=== PATIENT | female | born 1940 | race Caucasian/White ===

== ENCOUNTER 2021-02-13 07:38 | Outpatient (CLI) | payer MEDICARE, BC, SELFPAY ==
--- NOTE | ~2021-02-13 | DEXA_ITS ---
Bone Density Report Name: April Hunter Age: 81 Sex: Female Ethnicity: White Date of : 1940 Indication: osteopenia; hysterectomy; Referring Provider: Shelly Lock Study: Bone densitometry was performed. Exam Date: February 13, 2021 Accession number: [id number] Bone Density: Region BMD T-score Z-score Classification AP Spine (L1-L4) 0.744 -2.8 0.0 Osteoporosis Femoral Neck (Left) 0.580 -2.4 0.0 Osteopenia Total Hip (Left) 0.599 -2.8 -0.6 Osteoporosis Total Hip Bilateral Avg 0.577 -3.0 -0.8 Osteoporosis Femoral Neck (Right) 0.525 -2.9 -0.5 Osteoporosis Total Hip (Right) 0.554 -3.2 -1.0 Osteoporosis World Health Organization criteria for BMD impression classify patients as: Normal (T-score at or above -1.0), Osteopenia (T-score between -1.0 and -2.5), or Osteoporosis (T-score at or below -2.5). 10-year Fracture Risk: FRAX not reported because: Some T-score for Spine Total or Hip Total or Femoral Neck at or below -2.5 Previous Exams: Region Exam Age BMD T-score BMD Change BMD Change Date g/cm2 vs Baseline vs Previous AP Spine(L1-L4) 02/13/2021 81 0.744 -2.8 -0.100(-11.8%) -0.100(-11.8%) 08/15/2005 65 0.844 -1.8 Total Hip(Left) 02/13/2021 81 0.599 -2.8 -0.105(-14.9%) -0.105(-14.9%) 08/15/2005 65 0.704 -1.9 Total Hip(Right) 02/13/2021 81 0.554 -3.2 -0.160(-22.4%) -0.160(-22.4%) 08/15/2005 65 0.714 -1.9 *Denotes significance at 95% confidence level, LSC for AP Spine = 0.022 g/cm2, LSC for Total Hip = 0.027 g/cm2 Clinical Information Provided by Patient: Has used the following medications: Vitamin D, Calcium Has the following medical conditions: Hysterectomy Patient maximum height was 63 Menopause Age: 49 Drinks caffeinated beverages Onset of menses at age 14 Number of children 6 Impression: The patient has osteoporosis, based on the Right Total Hip T-score. No significant bone loss was observed. Discussion: INCREASED RISK OF FRACTURE. BONE DENSITY IS UNDESIRABLY LOW AT ONE OR MORE SKELETAL SITES, CONSISTENT WITH POSTMENOPAUSAL OSTEOPOROSIS. This patient's lowest T-score meets the World Health Organization's (WHO) criteria for osteoporosis at one or more sites (T-score -2.5 or below). In untreated patients, the risk of osteoporotic fracture increases approximately two-fold for each 1.0 SD decrease in T-score. Low bone density is not the only risk factor for fracture; also consider factors such as patient's age, frailty or po
--- NOTE | ~2021-02-13 | MM_ITS ---
EXAMINATION: MM screening vipul BI w angie HISTORY: Screening TECHNIQUE: Craniocaudal and mediolateral oblique 3-D tomosynthesis images were obtained and synthetic 2-D images were generated. CAD analysis was submitted and interpreted. COMPARISON: No prior mammogram is available for comparison at this institution. BREAST PARENCHYMAL COMPOSITION: There are scattered areas of fibroglandular density. FINDINGS: There is no evidence of suspicious mass, calcification, or architectural distortion to sugg est malignancy in either breast. There has been no suspicious interval change. IMPRESSION: 1. No mammographic evidence of malignancy. 2. Recommend routine screening mammography in one year. BI-RADS Category 1: Negative Reviewed, dictated and finalized at location A.
== END 2021-02-13 07:39 | disposition home or self-care (01) ==
DX: M81.0 Age-related osteoporosis without current pathological fracture (principal); Z12.31 Encounter for screening mammogram for malignant neoplasm of breast; M85.852 Other specified disorders of bone density and structure, left thigh; M85.851 Other specified disorders of bone density and structure, right thigh
CPT/HCPCS: 77063; 77067; 77080

== ENCOUNTER 2021-08-13 09:57 | Emergency (ER) | payer MEDICARE, BC, SELFPAY ==
--- NOTE | 2021-08-13 10:17 | ED.WOUNDLAC ---
HPI - Wound/Laceration General Chief Complaint: Wound/Laceration Stated Complaint: Laceration on left Leg Time Seen by Provider: 08/13/21 10:17 Source: patient and RN notes reviewed Mode of arrival: ambulatory Limitations: no limitations History of Present Illness HPI narrative: 81-year-old female presents to the [facility] with a skin tear to the left anterior contreras. States it occurred yesterday. Patient states that she was stepping out of her brothers dump truck when she slipped and scraped her contreras. States she comes here because bleeding was not completely controlled. Denies being on blood thinners. Had full range of motion. No trauma. Patient reports last Tdap was a year to a year and a half ago Related Data Allergies Allergy/AdvReac Type Severity Reaction Status Date / Time ciprofloxacin Allergy Unknown Rash Verified 08/13/21 10:16 Penicillins Allergy Unknown Rash Verified 08/13/21 10:16 Review of Systems Constitutional: Constitutional: Reports no additional constitutional complaints Eyes: Eyes: Reports no additional eye complaints ENT: Reports system reviewed and no additional complaints, except as documented Respiratory: Respiratory: Reports no additional respiratory complaints Gastrointestinal: Gastrointestinal: Reports no additional gastrointestinal complaints Musculoskeletal: Musculoskeletal: Reports no additional musculoskeletal complaints Integumentary/Breasts: Skin/Breast: Reports as per HPI Comments: Skin tear Neurologic: Reports system reviewed and no additional complaints, except as documented Psychiatric: Psychiatric: Reports no additional psychiatric complaints Allergic/Immunologic: Allergic/Immunologic: Reports no additional allergic/immunologic complaints PMFSH Surgical History Surgical History (Updated 08/13/21 @ 19:46 by Monse Santillan) No significant past surgical history Family History Family History Mother Family history of heart disease in male family member before age 55 Sibling Family history of heart disease in male family member before age 55 Father Patient's father is in good health Social History Social History Alcohol intake: never Comments At the time of my signature, I reviewed and agree with the nursing past medical, surgical, social, and family history. There is no relevant family history pertinent to the patient complaint. Exam Const: General: healthy appearing, no acute distress and alert Nutritional Appearance: well nourished Orientation/consciousness: patient oriented x3 Limitations: no limitations HENMT: Head: normal to inspection Eyes: Pupils: Equal, round and reactive pupils present Neck: Neck: normal visual inspection Chest: Chest palpation & inspection: normal inspection of the chest Resp: Effort & Inspection: normal respiratory effort Auscultation: clear to auscultation bilaterally Cardio: Rate: regular rate Rhythm: regular rhythm Skin: Wounds: wounds noted Other: L-shaped measuring 4 cm x 7 cm skin tear. Left mid anterior contreras Neuro: General: patient oriented x3, moves all extremities, no meningeal signs and no focal motor deficits Speech: normal speech Gait exam (Neuro): Normal gait present Extrem: General: normal to inspection and no pedal edema Psych: Appearance: grossly normal and well kempt Mental Status: mental status grossly normal Affect: normal affect Attitude: cooperative Thought content: Yes Normal thought content present Course Course Emergency Course: Discharge instructions reviewed with patient, as well as provided in writing per nursing staff. The instructions also include specific and strict return/GO TO THE ER as well as f/u information. All questions have been answered, and the patient deny any further questions with discharge and discharge plan. Procedures Laceration Laceration 1: Date: 08/13/21
== END 2021-08-13 11:05 | disposition home or self-care (01) ==
PROVIDERS: Emergency Provider Nurse Practitioner
DX: S81.812A Laceration without foreign body, left lower leg, initial encounter (principal); W45.8XXA Other foreign body or object entering through skin, initial encounter
CPT/HCPCS: 99212; G0463

== ENCOUNTER 2021-10-31 08:36 | Emergency (ER) | payer MEDICARE, BC, SELFPAY ==
--- NOTE | 2021-10-31 08:41 | ED.SKABFB ---
HPI - Skin/Abscess/Foreign Bdy General Chief complaint: Skin/Abscess/Foreign Body Stated complaint: Rash on Chest Time Seen by Provider: 10/31/21 08:55 Source: patient and RN notes reviewed Mode of arrival: ambulatory Limitations: no limitations History of Present Illness HPI narrative: 81-year-old female presents concern for rash on her chest. Reports the rash started on the right anterior chest shoulder area 4 days ago. Reports it has spread to the left anterior chest shoulder area and is spreading towards her back. Reports it is itchy, not painful. Reports she has been using hydrocortisone cream with minimal itch relief. She denies any history of skin allergies but reports sensitive skin for which she uses hypoallergenic home care and self care products. She reports she itches when she uses aluminum deodorant and she noticed the hydrocortisone has aluminum in it. She denies swollen lips, tongue, trouble breathing, fever, vomiting, diarrhea MD complaint: rash Related Data Home Medications Medication Instructions Recorded Confirmed levothyroxine [Synthroid] 150 mcg PO DAILY 10/31/21 10/31/21 memantine 28 mg PO DAILY 10/31/21 10/31/21 omeprazole 40 mg PO DAILY 10/31/21 10/31/21 propafenone 325 mg PO DAILY 10/31/21 10/31/21 raloxifene 60 mg PO DAILY 10/31/21 10/31/21 Allergies Allergy/AdvReac Type Severity Reaction Status Date / Time ciprofloxacin Allergy Unknown Rash Verified 10/31/21 08:43 Penicillins Allergy Unknown Rash Verified 10/31/21 08:43 Review of Systems Review of Systems: CONSTITUTIONAL: Denies malaise, chills, sweats, or fever. ENT: Denies swollen lips, swollen tongue CARDIOVASCULAR: Denies chest pain, palpitations, or edema. RESPIRATORY: Denies cough or dyspnea. GASTROINTESTINAL: Denies nausea, vomiting, diarrhea SKIN: Reports itchy rash to the anterior chest MUSCULOSKELETAL: Denies myalgia. All systems reviewed & are unremarkable except as noted in HPI and below PMFSH Surgical History Surgical History (Updated 08/13/21 @ 19:46 by Monse Santillan) No significant past surgical history Family History Family History Mother Family history of heart disease in male family member before age 55 Sibling Family history of heart disease in male family member before age 55 Father Patient's father is in good health Social History Social History Alcohol intake: never Comments At time of signature, agree with nursing past medical, surgical, social and family history. There is no relevant family history pertinent to the presenting complaint Exam Narrative: GENERAL: Well-appearing, well-nourished, and in no acute distress. HEAD: Normocephalic, atraumatic. EYES: PERRLA, conjunctivae clear ENT: Mucous membranes moist. Oropharynx without edema, erythema or lesions. NECK: Supple. No lymphadenopathy CHEST: Clear to auscultation. No respiratory distress. HEART: Regular rate and rhythm. SKIN: Warm, dry. Patches of erythematous plaque noted to the anterior bilateral chest NEURO: Alert and oriented x3. PSYCH: Normal mood and affect Course Course Emergency Course: Patient is aware of diagnosis, understands and agrees to treatment plan. Anticipatory guidance given. Patient agrees to follow-up as directed and is aware of reasons to seek care at the emergency department. Portions of this record may have been created with voice recognition software Vital Signs Vital signs: Reviewed. MDM - Skin/Abscess/Foreign Bdy MDM Narrative Medical decision making narrative: Does not appear at this time to be erythema multiforme, bullous, SJS, TEN; no evidence at this time to suggest RMSF, endocarditis or Lyme disease; patient looks well, nontoxic and is tolerating oral intake; no neurologic signs or symptoms; no headache, photophobia or neck pain; afebrile; appropriate for initial outpatient treatment; discussed the importance of
[2021-10-31 08:46] VITALS: BP 116/69; PULSE 70; RESP 16; TEMP 36.7; O2SAT 98
[2021-10-31 08:53] VITALS: BP 116/69; PULSE 70; RESP 16; TEMP 36.7; O2SAT 98
== END 2021-10-31 09:15 | disposition home or self-care (01) ==
PROVIDERS: Emergency Provider Nurse Practitioner
DX: L25.9 Unspecified contact dermatitis, unspecified cause (principal); I25.2 Old myocardial infarction; M19.90 Unspecified osteoarthritis, unspecified site; E03.9 Hypothyroidism, unspecified; D64.9 Anemia, unspecified
CPT/HCPCS: 99213; G0463

== ENCOUNTER 2022-07-01 11:55 | Outpatient (CLI) | payer MEDICARE, BC, SELFPAY ==
--- NOTE | ~2022-07-01 | XR_ITS ---
XR chest 2V DATE: 07/01/2022 12:22 INDICATION: Cough TECHNIQUE: 2 views COMPARISON: 05/17/2012 PA and lateral chest FINDINGS: The pubic sutures are again noted in the upper mid abdomen. Normal heart size. Mild aortic unfolding. No hilar or mediastinal enlargement. No pulmonary infiltrate or consolidation, pleural effusion or pulmonary vascular congestion or pneumo thorax is detected. Osteopenia. IMPRESSION: No active cardiac pulmonary disease Osteopenia Postoperative change of the abdomen Reviewed, dictated and finalized at location B.
== END 2022-07-01 11:56 | disposition home or self-care (01) ==
DX: R05.9 Cough, unspecified (principal); M85.88 Other specified disorders of bone density and structure, other site
CPT/HCPCS: 71046

== ENCOUNTER 2022-08-02 04:18 | Emergency (ER) | payer MEDICARE, BC, SELFPAY ==
--- NOTE | ~2022-08-02 | CT_ITS ---
EXAMINATION: CT soft tissue neck w con DATE: 08/02/2022 06:45 INDICATION: Dysphagia. TECHNIQUE: Computed tomography (CT) of the neck was performed with 75 mL Omnipaque-350 intravenous co ntrast. Automated exposure control and iterative reconstruction technique were employed. The dose-nicky gth product was 393.44 mGy-cm. COMPARISON: None FINDINGS: There is mild scarring at right lung apex. There are likely changes of ocular lens replacem ent surgeries. There is a 4 mm nodule in the thyroid, likely not clinically significant. There are no pathologically enlarged lymph nodes. The pharynx and larynx are normal. There is mucosal thickening in the paranasal sinuses. The mastoid air cells are normal. There is severe cervical spondylosis. IMPRESSION: 1. No etiology for the patient's symptoms. Reviewed, dictated and finalized at location A.
[2022-08-02 04:38] VITALS: BP 140/76; PULSE 67; RESP 20; O2SAT 100
--- NOTE | 2022-08-02 05:28 | ED.GENADULT ---
HPI - General Adult General Chief complaint: Neck Pain/Injury <Collin Faye MD - Last Filed: 08/02/22 07:04> Stated complaint: Neck pain, swallowing difficulty <Collin Faye MD - Last Filed: 08/02/22 07:04> Time Seen by Provider: 08/02/22 04:52 <Collin Faye MD - Last Filed: 08/02/22 07:04> History of Present Illness HPI narrative: Patient is an 82-year-old female who presents ER with neck pain. 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 Reports she does not see pain therapy nor does she see a spine doctor. She typically takes Tylenol for pain. She reports the pain is increased over the last 3 days. Its located on both sides of the neck. Worse with range of motion. Today became worse with swallowing. No sore throat. No cough. No dyspnea. No upper extremity numbness or tingling. No lower extremity weakness. <Collin Faye MD - Last Filed: 08/02/22 07:04> Related Data Home medications: Home Medications Medication Instructions Recorded Confirmed levothyroxine 150 mcg tablet 150 mcg PO DAILY 10/31/21 10/31/21 (Synthroid) memantine 28 mg capsule 28 mg PO DAILY 10/31/21 10/31/21 sprinkle,extended release 24hr omeprazole 40 mg capsule,delayed 40 mg PO DAILY 10/31/21 10/31/21 release propafenone 325 mg 325 mg PO DAILY 10/31/21 10/31/21 capsule,extended release 12 hr raloxifene 60 mg tablet 60 mg PO DAILY 10/31/21 10/31/21 <Collin Faye MD - Last Filed: 08/02/22 07:04> Allergies/adverse reactions: Allergies Allergy/AdvReac Type Severity Reaction Status Date / Time ciprofloxacin Allergy Unknown Rash Verified 08/02/22 04:20 Penicillins Allergy Unknown Rash Verified 08/02/22 04:20 <Collin Faye MD - Last Filed: 08/02/22 07:04> Review of Systems Review of Systems: All systems reviewed & are unremarkable except as noted in HPI and below <Collin Faye MD - Last Filed: 08/02/22 07:04> Constitutional: Constitutional: Denies chills, Denies fatigue and Denies fever(s) <Collin Faye MD - Last Filed: 08/02/22 07:04> ENT: Reports dysphagia, Denies nasal congestion and Denies sore throat <Collin Faye MD - Last Filed: 08/02/22 07:04> Cardiovascular: Cardiovascular: Denies chest pain, Denies rapid heart rate and Denies radiating jaw, neck or arm pain <Collin Faye MD - Last Filed: 08/02/22 07:04> Respiratory: Respiratory: Denies cough and Denies dyspnea <Collin Faye MD - Last Filed: 08/02/22 07:04> Gastrointestinal: Gastrointestinal: Denies abdominal pain, Denies nausea and Denies vomiting <Collin Faye MD - Last Filed: 08/02/22 07:04> Musculoskeletal: Musculoskeletal: Denies arthralgias and Denies joint swelling <Collin Faye MD - Last Filed: 08/02/22 07:04> Comments: Neck pain <Collin Faye MD - Last Filed: 08/02/22 07:04> PMFSH Past Medical History Medical History: Medical History (Updated 08/02/22 @ 09:17 by Jeremy Gutierrez MD) Depression Hypothyroidism Myocardial infarction Neck arthritis <Collin Faye MD - Last Filed: 08/02/22 07:04> Surgical History Surgical History: Surgical History (Updated 08/02/22 @ 05:37 by Collin Faye MD) History of cholecystectomy History of hysterectomy <Collin Faye MD - Last Filed: 08/02/22 07:04> Family History Family History: Family History Mother Family history of heart disease in male family member before age 55 Sibling Family history of heart disease in male family member before age 55 Father Patient's father is in good health <Collin Faye MD - Last Filed: 08/02/22 07:04> Social History Social History: Social History Alcohol intake: never <Collin Faye MD - Last Filed: 08/02/22 07:04>
[2022-08-02] MEDS: KETOROLAC 30 MG/ML VIAL (*BKC) IV PUSH (05:44)
[2022-08-02] MEDS: diazePAM INJ (*CRX) 10 MG/2 ML SYRINGE 2 MG IV PUSH (05:45)
[2022-08-02 06:00] LABS: Basophils Absolute Auto 0.1 K/mm3 (0.0-0.1); Basophils Percent Auto 0.8 % (0.2-1.2); Eosinophils Absolute Auto 1.3 K/mm3 (0-0.3); Eosinophils Percent Auto 16.9 % (0-4.4); Hematocrit 40.7 % (37.0-47.0); Hemoglobin 13.2 g/dL (12.0-15.0); Immature Granulocyte Absolute 0.02 K/mm3 (0.00-0.031); Immature Granulocyte Percent A 0.3 % (0-0.5); Lymphocytes Absolute Auto 1.81 K/mm3 (0.9-3.2); Mean Corpuscular HGB Conc 32.4 g/dl (32-36); Mean Corpuscular Hemoglobin 33.2 pg (26-34); Mean Corpuscular Volume 102.3 fl (80-100); Mean Platelet Volume 9.6 fl (7.4-10.4); Monocytes Absolute Auto 0.7 K/mm3 (0.1-0.6); Monocytes Percent Auto 8.5 % (2.6-8.5); Neutrophils Percent Auto 50.5 % (45.5-73.1); Platelet Count Result 258 k/mm3 (150-375); Red Blood Count 3.98 M/mm3 (4.2-5.4); Red Cell Distribution Width 12.9 % (11.5-14.5); White Blood Count 7.9 K/mm3 (4.5-10.0)
[2022-08-02 06:13] LABS: Anion Gap 10 mmol/L (8-16); Blood Urea Nitrogen 18 mg/dL (7-17); Calcium 8.9 mg/dL (8.4-10.2); Carbon Dioxide 27 mmol/L (22-30); Chloride 103 mmol/L (98-107); Estimated CRCL calculation 27 ml/min; Estimated Glomerular Filt Rate 47; Glucose 101 mg/dL (65-110); Potassium 4.6 mmol/L (3.4-5.0); Sodium 140 mmol/L (137-145)
[2022-08-02 09:38] VITALS: BP 135/61; PULSE 70; RESP 18; O2SAT 98
== END 2022-08-02 09:42 | disposition home or self-care (01) ==
PROVIDERS: Emergency Medicine; Emergency Provider Emergency Medicine
DX: M54.2 Cervicalgia (principal); G89.21 Chronic pain due to trauma; E03.9 Hypothyroidism, unspecified; I25.2 Old myocardial infarction; Z90.710 Acquired absence of both cervix and uterus
CPT/HCPCS: 36415; 70491; 80048; 85025; 96374; 96375; 99284; J1885; J3360; Q9967

== ENCOUNTER 2023-02-17 09:16 | Outpatient (CLI) | payer MEDICARE, BC, SELFPAY ==
--- NOTE | 2023-02-17 11:00 | NEURO_ITS ---
Impression: # Complains of numbness of right hand. # Right ulnar neuropathy across the elbow. # Normal needle/EMG exam. Nerve Conduction Studies Anti Sensory Summary Table Stim Site NR Peak (ms) P-T Amp (?V) Site1 Site2 Delta-P (ms) Dist (cm) Michael (m/s) Right Median Anti Sensory (2-3nd Digit) Wrist 3.2 17.4 Wrist 2-3nd Digit 3.2 14.0 44 Wrist 3.3 24.2 Wrist 2-3nd Digit 3.2 14.0 44 Right Radial Anti Sensory (Base 1st Digit) Wrist 2.8 34.5 Wrist Base 1st Digit 2.8 0.0 Right Ulnar Anti Sensory (5th Digit) Wrist 2.3 41.8 Wrist 5th Digit 2.3 14.0 61 Motor Summary Table Stim Site NR Onset (ms) O-P Amp (mV) Site1 Site2 Delta-0 (ms) Dist (cm) Michael (m/s) Right Median Motor (Abd Poll Brev) Wrist 3.1 1.8 Elbow Wrist 4.6 26.0 57 Elbow 7.7 1.6 Right Ulnar Motor (Abd Dig Minimi) Wrist 2.0 8.0 A Elbow Wrist 5.3 27.0 51 A Elbow 7.3 7.3 B Elbow Wrist 4.2 20.0 48 B Elbow 6.2 7.4 F Wave Studies NR F-Lat (ms) L-R F-Lat (ms) Right Median (Mrkrs) (Abd Poll Brev) 28.13 Right Ulnar (Mrkrs) (Abd Dig Min) 28.13 EMG Side Muscle Nerve Root Ins Act Fibs Amp Dur Recrt Comment Right 1stDorInt Ulnar C8-T1 Nml Nml Nml Nml Nml Right Ext Indicis Radial (Post Int) C7-8 Nml Nml Nml Nml Nml Right Ext Digitorum Radial (Post Int) C7-8 Nml Nml Nml Nml Nml Right BrachioRad Radial C5-6 Nml Nml Nml Nml Nml Right PronatorTeres Median C6-7 Nml Nml Nml Nml Nml Right Abd Poll Brev Median C8-T1 Nml Nml Nml Nml Nml Right ABD Dig Min Ulnar C8-T1 Nml Nml Nml Nml Nml MTDD
== END 2023-02-17 09:17 | disposition home or self-care (01) ==
PROVIDERS: Visit Provider Orthopaedic Surgery
DX: G56.01 Carpal tunnel syndrome, right upper limb (principal); G56.21 Lesion of ulnar nerve, right upper limb
CPT/HCPCS: 95886; 95909

== ENCOUNTER 2024-02-13 08:37 | Emergency (ER) | payer MEDICARE, BC, SELFPAY ==
--- NOTE | 2024-02-13 08:47 | ED.URI ---
HPI - URI/Sore Throat General Chief Complaint: Upper Respiratory Infection Stated Complaint: Cough Source: patient, RN notes reviewed and old records reviewed Mode of arrival: ambulatory Limitations: no limitations History of Present Illness HPI Narrative: Pleasant 84 year old female who presents to [facility] care with complaints of persistent cough for the past 1 month duration. Patient reports that she had the flu about a month also and has had this cough since. Patient reports no shortness of breath, no tachypnea noted or any retractions. Patient reports that she has no fevers, no sore throat, does have some nasal congestion and drainage. She states that she has been taking Robitussin for her cough. Patient reports that she has coughed so much that she is hoarse. MD elicited complaint: cough, rhinorrhea and nasal congestion Pertinent past history: seasonal allergies Onset (ago): month(s) (1) Severity: moderate Description of mucous: clear Able to tolerate fluids by mouth: Yes Treatments prior to arrival: other (Robitussin) Related Data Home Medications Medication Instructions Recorded Confirmed levothyroxine 150 mcg tablet 150 mcg PO DAILY 10/31/21 02/13/24 (Synthroid) memantine 28 mg capsule 28 mg PO DAILY 10/31/21 02/13/24 sprinkle,extended release 24hr omeprazole 40 mg capsule,delayed 40 mg PO DAILY 10/31/21 02/13/24 release raloxifene 60 mg tablet 60 mg PO DAILY 10/31/21 02/13/24 Allergies Allergy/AdvReac Type Severity Reaction Status Date / Time ciprofloxacin Allergy Unknown Rash Verified 02/13/24 08:40 Penicillins Allergy Unknown Rash Verified 02/13/24 08:40 Review of Systems Review of Systems: CONSTITUTIONAL: Denies malaise, chills, sweats, or fever. EYES: Denies visual changes, redness, or discharge. ENT: Reports rhinorrhea, congestion,no sinus pain,no otalgia and no sore throat. CARDIOVASCULAR: Denies chest pain, palpitations, or edema. RESPIRATORY: Reports cough.? Denies dyspnea. GASTROINTESTINAL: Denies abdominal pain, nausea, vomiting, diarrhea SKIN: Denies rash or itching. MUSCULOSKELETAL: Denies myalgia. NEUROLOGIC: Denies headache. All systems reviewed & are unremarkable except as noted in HPI and below PMFSH Past Medical History Medical History Depression Hypothyroidism Myocardial infarction Neck arthritis Surgical History Surgical History History of cholecystectomy History of hysterectomy Family History Family History Mother Family history of heart disease in male family member before age 55 Sibling Family history of heart disease in male family member before age 55 Father Patient's father is in good health Social History Social History Alcohol intake: never Comments At time of signature, agree with nursing past medical, surgical, social and family history. There is no relevant family history pertinent to the presenting complaint Exam Narrative: GENERAL: Well-appearing, well-nourished, and in no acute distress. HEAD: Normocephalic EYES: PERRLA, conjunctivae clear ENT: Nares clear, turbinates edematous and erythematous, clear discharge. Mucous membranes moist. TM pearly tapia with dull light reflex bilaterally; no tragal tenderness. Oropharynx erythematous without lesions. Tonsils not enlarged and without exudate, no drooling, no hoarseness, no trismus, uvula midline.post nasal drainage NECK: Supple. No lymphadenopathy CHEST: Clear to auscultation, breath sounds equal. No wheezing, rhonchi, rales, or stridor. No respiratory distress, speaks in full sentences.cough noted SAO2 100% on room air HEART: Regular rate and rhythm. No murmur heard. SKIN: Warm, dry, no rash. NEURO: Alert and oriented x3. PSYCH: Normal mood a
[2024-02-13 08:48] VITALS: BP 136/66; PULSE 76; RESP 12; TEMP 36.2; O2SAT 100
== END 2024-02-13 09:05 | disposition home or self-care (01) ==
PROVIDERS: Emergency Provider Registered Nurse
DX: R05.2 Subacute cough (principal); E03.9 Hypothyroidism, unspecified; I25.2 Old myocardial infarction
CPT/HCPCS: 99213; G0463

== ENCOUNTER 2024-11-08 15:27 | Emergency (ER) | payer MEDICARE, BC, SELFPAY ==
--- NOTE | 2024-11-08 15:40 | ED_ITS ---
HPI - General Adult General Chief complaint: Ear Stated complaint: Ear infection Time Seen by Provider: 11/08/24 15:40 Source: patient, RN notes reviewed and old records reviewed Mode of arrival: ambulatory Limitations: no limitations History of Present Illness HPI narrative: Patient presents with complaints left ear pain. She reports that pain has been present for at least 1 week. She reports that she is starting to feel ?off balance? as results of her ear discomfort. She has sought care elsewhere recently for the same complaint, states that she was given otic drops that have not helped. She denies any fever, chills, sweats. She denies any injury or trauma. She voices no other concerns or complaints at this time. Related Data Home Medications ?Medication ?Instructions ?Recorded ?Confirmed ?Last Taken ?Type levothyroxine 150 mcg tablet 150 mcg PO DAILY 10/31/21 02/13/24 Unknown History (Synthroid) memantine 28 mg capsule 28 mg PO DAILY 10/31/21 02/13/24 Unknown History sprinkle,extended release 24hr omeprazole 40 mg capsule,delayed 40 mg PO DAILY 10/31/21 02/13/24 Unknown History release raloxifene 60 mg tablet 60 mg PO DAILY 10/31/21 02/13/24 Unknown History Allergies Allergy/AdvReac Type Severity Reaction Status Date / Time ciprofloxacin Allergy Unknown Rash Verified 11/08/24 15:32 Penicillins Allergy Unknown Rash Verified 11/08/24 15:32 Review of Systems Review of Systems: All systems reviewed & are unremarkable except as noted in HPI and below Constitutional: Constitutional: Reports no additional constitutional complaints ENT: Reports system reviewed and no additional complaints, except as documented and Reports otalgia Cardiovascular: Cardiovascular: Reports no additional cardiovascular complaints Respiratory: Respiratory: Reports no additional respiratory complaints Gastrointestinal: Gastrointestinal: Reports no additional gastrointestinal complaints [facility] Past Medical History Medical History Depression Hypothyroidism Myocardial infarction Neck arthritis Surgical History Surgical History History of hysterectomy History of cholecystectomy Family History Family History Mother Family history of heart disease in male family member before age 55 Sibling Family history of heart disease in male family member before age 55 Father Patient's father is in good health Social History Social History Alcohol intake: never Comments At the time of my signature, I reviewed and agree with the nursing past medical, surgical, social, and family history. There is no relevant family history pertinent to the patient complaint. Exam Const: General: cooperative, no acute distress, alert and awake Orientation/consciousness: oriented to person, oriented to place and oriented to time HENMT: Head: normal to inspection Ears: TM abnormal with fluid behind the TM on the right and unable to visualize TM on the left (Due to copious amounts of drainage) Resp: Effort & Inspection: normal respiratory effort and able to speak in complete sentences Auscultation: clear to auscultation bilaterally, no crack les, no rales, no rhonchi and no wheezes Cardio: Palpation: normal PMI Rate: regular rate Rhythm: regular rhythm Heart sounds: S1 normal heart sound present and S2 normal heart sound present Neuro: General: oriented to person, oriented to place and oriented to time Cranial nerves: Yes CN's II-XII intact bilaterally Psych: Appearance: grossly normal Thought process: Normal thought process present Insight: Good insight present (Psych) Judgement: Good judgement present (Psych) Course Course Level of Care: Express Care Visit Vital Signs Vital signs: Reviewed Medical Decision Making MDM Narrative Medical decision making narrative: Unable to visualize left TM due to excessive drainage, likely result of perforated TM. Treat accordingly. Patient is nontoxic appearing, stable for discharge home with p.o. antibiotic therapy, steroid burst. She is advised follow with primary care provider. Emergency department precautions discussed at length. Discharge instructions reviewed with patient, as well as provided in writing per nursing staff. The instructions also include specific and strict return/GO TO THE ER as well as f/u information. All questions have been answered, and the patient deny any further questions with discharge and discharge plan. Some parts of this dictation were generated by voice recognition software and may contain typographical and/or grammatical inaccuracies. Differential Diagnosis Differential Diagnosis: Otitis media, otitis externa, otalgia Medical Records Medical records reviewed: Yes I reviewed the external patient's medical records. Vital Signs Vital Signs: reviewed Lab Data Lab results reviewed: Yes I reviewed the patient's lab results. Lab results narrative: reviewed Discharge Plan Discharge Clinical Impression: Otitis media Qualifiers: Otitis media type: suppurative Chronicity: acute Laterality: left Recurrence: not specified as recurrent Spontaneous tympanic membrane rupture: with spontaneous rupture Qualified Code(s): H66.012 - Acute suppurative otitis media with spontaneous rupture of ear drum, left ear Patient Disposition: Home, Self-Care Condition: Stable Instructions: Antibiotic Form, Ear Infection (ED) Additional Instructions: Take all medications as prescribed. Follow with primary care provider. Emergency department for new or worse symptoms Patient Language: [place] Prescriptions: New cefdinir 300 mg capsule 300 mg PO BID Qty: 20 0RF prednisone 50 mg tablet 50 mg PO DAILY Qty: 5 0RF No Action omeprazole 40 mg capsule,delayed release(DR/EC) 40 mg PO DAILY levothyroxine [Synthroid] 150 mcg tablet 150 mcg PO DAILY raloxifene 60 mg tablet 60 mg PO DAILY memantine 28 mg capsule,sprinkle,ER 24hr 28 mg PO DAILY triamcinolone acetonide 0.1 % cream 1 applic TOPICAL BID 7 Days Qty: 80 0RF tramadol 50 mg tablet 50 mg PO Q4H PRN (Reason: pain) Qty: 20 0RF Follow-up/Referrals: PHYSICIAN NOT ON STAFF,NONSTAFF [Primary Care Provider] - Time of Disposition: 16:01
[2024-11-08 15:45] VITALS: BP 125/81; PULSE 118; RESP 16; TEMP 36.3; O2SAT 97
== END 2024-11-08 16:05 | disposition home or self-care (01) ==
PROVIDERS: Emergency Provider Nurse Practitioner Family
DX: H66.012 Acute suppurative otitis media with spontaneous rupture of ear drum, left ear (principal); E03.9 Hypothyroidism, unspecified; I25.2 Old myocardial infarction; M47.812 Spondylosis without myelopathy or radiculopathy, cervical region
CPT/HCPCS: 99213; G0463